=== PATIENT | female | born 1985 | race African-American/Black ===

== ENCOUNTER 2018-11-10 10:59 | Emergency (ER) | payer OTHER ==
[~2018-11-10] VITALS: Ht 157.5 cm; Wt 116.1 kg
[2018-11-10 12:30] LABS: PLATELET COUNT 449 K/uL (152-353)
[2018-11-10 12:46] LABS: POTASSIUM 3.8 mmol/L (3.6-5.2)
[2018-11-10 15:00] VITALS: BP 143/71; TEMP 98.2
== END 2018-11-10 15:07 | disposition home or self-care (01) ==
LOC: ED 10:59
PROVIDERS: Student in an Organized Health Care Education/Training Program
DX: S00.83XD Contusion of other part of head, subsequent encounter (principal); S13.8XXD Sprain of joints and ligaments of other parts of neck, subsequent encounter; S06.0X0D Concussion without loss of consciousness, subsequent encounter; W22.8XXD Striking against or struck by other objects, subsequent encounter
CPT/HCPCS: 36415; 80053; 81025; 85027; 96360; 96375; 96376; 99284; J2270; J2405